=== PATIENT | female | born 1975 | race Caucasian/White ===

== ENCOUNTER 2020-05-05 15:06 | Emergency (ER) | payer OTHER ==
[~2020-05-05] VITALS: Ht 152.4 cm; Wt 103.2 kg
[2020-05-05 15:40] VITALS: BP 132/75; TEMP 98.5
[2020-05-05 19:00] VITALS: PULSE 89
== END 2020-05-05 19:00 | disposition home or self-care (01) ==
LOC: COL.ER 15:06
DX: R05 Cough (principal); U07.1 COVID-19